=== PATIENT | female | born 1975 | race Caucasian/White ===

== ENCOUNTER → 2023-09-27 | Outpatient (CLI) | payer OTHER ==
--- NOTE | 2023-09-28 18:54 | MM ---
Reason for Exam: Screening (asymptomatic). Baseline mammogram. Patient History: Menarche at age 15. First Full-Term at age 18. Currently using Hormonal Contraceptives, for 10 years. Risk Values: Irene 5 year model risk: 0.4%. NCI Lifetime model risk: 4.3%. Prior Study Comparison: Patient's first Mammogram. No prior studies available for comparison. Tissue Density: There are scattered areas of fibroglandular density. Findings: Analyzed By CAD. In the right breast, area of asymmetric density central anterior aspect could represent superimposition shadow. Further evaluation is recommended. In the left breast, an area of asymmetric density anterior aspect on the CC view could also represent superimposition shadow. Further evaluation is recommended. Otherwise, no suspicious microcalcification or other discrete abnormality is seen. Overall Assessment: Incomplete: need additional imaging evaluation, BI-RAD 0 Management: Special View Mammogram of both breasts. Additional views to include spot 3-D CC, 3-D CC rolled, and 3-D lateral views. [facility] will attempt to contact patient to return for supplemental views and ultrasound if indicated. Electronically signed and approved by: Antione Michaud M.D. Radiologist
== END | disposition home or self-care (01) ==
LOC: RADMAMWWP 09:18
PROVIDERS: ATTEND Obstetrics & Gynecology Obstetrics
DX: Z12.31 Encounter for screening mammogram for malignant neoplasm of breast (principal)
CPT/HCPCS: 77067

== ENCOUNTER → 2023-09-30 | Outpatient (CLI) | payer OTHER ==
--- NOTE | 2023-09-30 09:13 | MM ---
Reason for Exam: Additional evaluation requested from abnormal screening. Last screening mammogram was performed less than 1 month ago. Patient History: Menarche at age 15. First Full-Term at age 18. Patient has history of breast feeding. Currently using Hormonal Contraceptives, for 10 years. Risk Values: Irene 5 year model risk: 0.4%. NCI Lifetime model risk: 4.3%. Prior Study Comparison: 09/27/2023 Bilateral MG screening mammo w CAD, [facility]. Tissue Density: There are scattered areas of fibroglandular density. Findings: Analyzed By CAD. 6 mm isodense nodular asymmetry medial right breast middle depth appears to move laterally on the lateral rolled view suggesting location in the upper quadrant. Not well seen on the MLO or true lateral view. Further ultrasound evaluation is recommended. The other areas of asymmetric density on the bilateral CC views do not persist and are compatible with superimposition shadow. Overall Assessment: Incomplete: need additional imaging evaluation, BI-RAD 0 Management: Diagnostic Breast Ultrasound of the right breast. Upper inner quadrant. Electronically signed and approved by: Antione Michaud M.D. Radiologist
--- NOTE | 2023-09-30 09:48 | USB ---
Reason for Exam: Additional evaluation requested from abnormal screening. Patient History: Menarche at age 15. First Full-Term at age 18. Patient has history of breast feeding. Currently using Hormonal Contraceptives, for 10 years. Risk Values: Irene 5 year model risk: 0.4%. NCI Lifetime model risk: 4.3%. Technique: Method: Targeted. Prior Study Comparison: 09/27/2023 Bilateral MG screening mammo w CAD, [facility]. Findings: The upper inner quadrant of the right breast, the axilla of the right breast and the retroareolar of the right breast were scanned. Targeted ultrasound upper inner quadrant right breast including scanning of the subareolar region and axilla. At the 1:00 position, 4 cm from the nipple, there is a elongated area measuring 6 x 5 x 1 mm, possible ectatic duct or other etiology, possible mammographic correlate. Six-month follow-up recommended. No other solid or cystic lesion. In the axilla, there is a nonenlarged but borderline thickened lymph node with cortex measuring up to 2.9 mm. This can also be reassessed at the follow-up. Overall Assessment: Probably benign, BI-RAD 3 Management: Diagnostic Mammogram of the right breast in 6 months. Diagnostic Breast Ultrasound of the right breast in 6 months. A clinical breast exam by your physician is recommended on an annual basis and results should be correlated with mammographic findings. This exam should not preclude additional follow-up of suspicious palpable abnormalities. Results were given to the patient verbally at the time of exam. Electronically signed and approved by: Antione Michaud M.D. Radiologist
== END | disposition home or self-care (01) ==
LOC: RADMAMWWP 08:23
PROVIDERS: ATTEND Obstetrics & Gynecology Obstetrics
DX: R92.323 Mammographic fibroglandular density, bilateral breasts (principal)
CPT/HCPCS: 77062; 77066